=== PATIENT | female | born 1995 | race Caucasian/White ===

== ENCOUNTER → 2020-03-02 | Emergency (ER) | payer OTHER ==
[~2020-03-02] VITALS: Ht 162.6 cm; Wt 81.8 kg
[~2020-03-02] MED LIST: ALBUTEROL SULF8.5 GM INH; DICLOFENAC SODI50 MG PO; MEDROL DOSE PACK4 MG PO
[2020-03-02 11:31] VITALS: BP 129/79; Ht 162.6 cm; Wt 81.8 kg
[2020-03-02 12:51] LABS: BASOPHILS 0.5 % (0-2); HEMATOCRIT 42.3 % (36.0-48.0); HEMOGLOBIN 14.4 g/dL (12-16); IMMATURE GRANULOCYTES 0.3 % (0-5); LYMPHOCYTES 40.1 % (15-50); MCH 29.2 pg (26.0-34.0); MCV 85.8 fL (80.0-100.0); MEAN PLATELET VOLUME 9.3 fL (7.4-10.4); MONOCYTES 10.3 % (2-11); NEUTROPHILS 45.8 % (40-80); PLATELET COUNT 275 10x3/uL (130-400); RBC 4.93 10x6/uL (4.00-5.40); RDW 13.2 % (11.5-14.5); WBC 7.9 10x3/uL (4.8-10.8)
[2020-03-02 12:55] LABS: CALC OSMOLALITY 279 mosm/kg (275-300); CALCIUM 9.3 mg/dL (8.5-10.1); CARBON DIOXIDE 27.2 mmol/L (21.0-32.0); CHLORIDE - SERUM 105 mmol/L (98-107); CREATININE - SERUM 0.9 mg/dL (0.6-1.3); GLUCOSE 107 mg/dL (74-106); POTASSIUM - SERUM 3.8 mmol/L (3.5-5.1); SODIUM 141 mmol/L (136-145); UREA NITROGEN 10 mg/dL (7-18); eGFR NON AFRICAN AMERICAN 82 mL/min (90-120)
[2020-03-02 13:03] LABS: ALBUMIN 3.9 g/dL (3.4-5.0); ALKALINE PHOSPHATASE 79 U/L (30-120); ALT (SGPT) 27 U/L (10-68); BILIRUBIN - TOTAL 0.39 mg/dL (0.2-1.3); PROTEIN - SERUM 7.5 g/dL (6.4-8.2); TROPONIN-I < 0.017 ng/mL (0.000-0.060)
== END | disposition home or self-care (01) ==
LOC: D.ER 11:01
PROVIDERS: Emergency Medicine
DX: R07.89 Other chest pain (principal); R73.9 Hyperglycemia, unspecified